=== PATIENT | female | born 1995 | race Caucasian/White ===

== ENCOUNTER 2025-03-14 19:41 | Emergency (ER) | payer OTHER, SELFPAY ==
[2025-03-14 19:51] VITALS: BP 115/56; PULSE 115; RESP 16; TEMP 36.8; O2SAT 100; BMI 22.5
--- NOTE | 2025-03-14 20:26 | ED.FEMALEGU ---
HPI - Female Genitourinary General Chief complaint: Urogenital-Female Stated complaint: UTI Time Seen by Provider: 03/14/25 23:12 Source: patient Mode of arrival: ambulatory Limitations: no limitations History of Present Illness ED Provider: Rasta RENAE HPI Narrative: The patient is a 29-year-old female presenting to the ED for evaluation of urgency, hesitancy, and dysuria. Patient reports she was treated at [facility] 3 weeks ago for UTI with cephalexin, finished the antibiotics and symptoms improved, however they returned tonight. The patient denies associated fever/chills, nausea, vomiting, chest pain, shortness of breath, vaginal discharge, irregular vaginal bleeding, or other acute somatic complaint. The patient denies any associated hematuria. Related Data Previous Rx's ?Medication ?Instructions ?Recorded phenazopyridine 100 mg tablet 100 mg PO TID 6 doses #6 tabs 03/14/25 (Pyridium) sulfamethoxazole 800 1 tab PO BID #20 tabs 03/14/25 mg-trimethoprim 160 mg tablet (Bactrim DS) Allergies Allergy/AdvReac Type Severity Reaction Status Date / Time No Known Allergies Allergy Verified 03/14/25 19:54 Review of Systems Review of Systems: Yes all other systems are reviewed and are negative PMFSH Social History Social History Advance Directives: No Advance Directives Information Provided: Yes Do you have a plan to hurt others: No Plan Physical Exam Vital Signs: Vital Signs: Last Vital Signs Temp 98 F 03/14/25 22:15 Pulse 107 H 03/14/25 22:15 Resp 16 03/14/25 22:15 BP 117/58 L 03/14/25 22:15 Pulse Ox 100 03/14/25 22:15 O2 Del Method Room Air 03/14/25 22:15 BMI result Body Mass Index 22.5 CONSTITUTIONAL: The patient appears non-toxic, well nourished and in no acute distress. Vital signs as documented. HEAD: Atraumatic, normocephalic. EYES: EOMs grossly intact, pupils equal, conjunctiva clear, no exudate. ENT: Nares patent, no discharge. Airway patent, no audible stridor, visible mucosa is pink and moist without noted lesions. NECK: trachea is midline, no obvious masses or gross abnormalities. CHEST: Symmetric movement, normal appearance. LUNGS: Non-labored work of breathing. CARDIAC: No evidence of hypoperfusion. ABDOMEN: Nondistended, soft and non-tender x4 quadrants, no obvious injury. : Deferred. EXTREMITIES: Moves all extremities spontaneously without reported pain. No obvious injury or deformity noted. NEURO: Alert and oriented x3, CN II-XII appear grossly intact. Cerebellar Functioning grossly intact. Speech clear and appropriate. SKIN: Warm, dry, color appropriate. No rashes or lesions noted. Course Course Course Narrative: Medical screening exam performed. Please refer to detailed history, exam, evaluation, and management by primary provider. Recent UTI at [facility]. Reports completing antibiotics. Symptoms returning. JS Medical Decision Making Medical Decision Making [facility] Narrative: 11:41 PM 03/14/2025 ([place] RENAE): The patient is a 29-year-old female presenting to the ED for evaluation of urgency, hesitancy, and dysuria. Patient reports she was treated at [facility] 3 weeks ago for UTI with cephalexin, finished the antibiotics and symptoms improved, however they returned tonight. The patient denies associated fever/chills, nausea, vomiting, chest pain, shortness of breath, vaginal discharge, irregular vaginal bleeding, or other acute somatic complaint. The patient denies any associated hematuria. The patient's exam is benign, no acute findings. Patient is nontoxic appearing. The patient's laboratory evaluation is markedly reassuring, no leukocytosis, significant anemia, electrolyte abnormality, or LUCAS. The patient's urinalysis shows moderate leukocyte esterase with WBCs. Given the patient's symptoms , combined with the urinalysis, patient will be treated for suspected recurrent UTI with Pyridium and Bactrim. Patient has been advised to follow up with PCP for re-evaluation. Admission/Observation Consideration of admission/observation: Escalation of care including admission/observation considered Lab Data [facility] Lab Attestation statement: I reviewed the patient's lab results. 03/14/25 20:32 03/14/25 20:32 Labs: Lab Results 03/14/25 Range/Units 20:32 WBC 6.9 (4.8-10.8) X10*3/uL RBC 4.08 L (4.20-5.50) X10*6/uL Hgb 11.6 L (12.0-16.0) g/dl Hct 33.1 L (37.0-47.0) % MCV 81.1 (80.0-98.0) fL MCH 28.4 (27.0-33.0) pg MCHC 35.0 (31.0-35.0) g/dl RDW 11.8 (11.0-16.0) % Plt Count 245 (160-400) X10*3/uL MPV 9.1 L (9.4-12.3) fL Immature Gran % (Auto) 0.1 (0.0-0.4) % Neut % (Auto) 48.9 (45-73) % Lymph % (Auto) 40.8 H (20-40) % [place] % (Auto) 9.5 (2-11) % Eos % (Auto) 0.6 (0-4) % Baso % (Auto) 0.1 (0-2) % Lymph # (Auto) 2.8 (1.2-4.9) X10*3/uL [place] # (Auto) 0.7 (0.1-1.2) X10*3/uL Eos # (Auto) 0.0 (0.0-0.4) X10*3/uL Baso # (Auto) 0.0 (0.0-0.2) X10*3/uL Abs Immat Gran (auto) 0.01 (0.00-0.03) X10*3/uL Absolute Neuts (auto) 3.4 (2.0-8.3) x10*3/uL Absolute Nucleated RBC 0.000 (0.0-0.012) X10*3/uL Nucleated RBC % (auto) 0.0 (0.0-0.2) /100WBC Sodium 139 (135-145) mmol/L Potassium 4.1 (3.3-5.1) mmol/L Chloride 103 (96-108) mmol/L Carbon Dioxide 26 (22-29) mmol/L Anion Gap 14 (12-20) BUN 10 (9-16) mg/dL Creatinine 0.47 L (0.5-1.4) mg/dL Estim Creat Clear Calc 130.8 Estimated GFR > 60 Random Glucose 98 (60-115) mg/dL Calcium 9.3 (8.4-10.2) mg/dL Total Bilirubin 1.1 H (0.0-1.0) mg/dL AST 37 H (5-31) U/L ALT 56 H (0-31) U/L Alkaline Phosphatase 92 (39-117) U/L Total Protein 6.2 L (6.5-8.0) g/dL Albumin 3.9 (3.5-5.0) g/dL Urine Color Yellow Urine Appearance Clear Urine pH 6.5 (5.0-9.0) Ur Specific [place] <= 1.005 (1.005-1.025) Urine Protein Negative (Neg-Trace) mg/dL Urine Glucose (UA) Negative (Negative) mg/dL Urine Ketones Negative (Negative) mg/dL Urine Blood Negative (Negative) Urine Nitrite Negative (Negative) Ur Leukocyte Esterase Moderate (2+) H (Negative) Urine RBC 0-2 (0-2) /HPF Urine WBC 11-20 (0-5) /HPF Ur Squamous Epith Cells 0-2 (0-2) /HPF Urine Bacteria None Seen (None Seen) Hyaline Casts 0-2 (0-2) /LPF Urine Test NEGATIVE (NEGATIVE) Prescription Management I considered prescription management with: Antibiotic Discharge Plan Discharge Clinical Impression: Urinary tract infection Qualifiers: Urinary tract infection type: acute cystitis Hematuria presence: without hematuria Qualified Code(s): N30.00 - Acute cystitis without hematuria Patient Disposition: Home, Self-Care Instructions: Urinary Tract Infection in Women (ED) Additional Instructions: Thank you for choosing [facility]'s Emergency Department for your care today. Your laboratory evaluation today thankfully shows no evidence of a systemic infection or other dangerous process requiring admission to the hospital or continued ED observation, and it is safe to discharge you home. Your urinalysis and presentation of symptoms is consistent with a urinary tract infection. Seeing as he recently completed a course of cephalexin we are going to change your antibiotic to Bactrim. Please take this as prescribed until it is finished. We are also treating you with Pyridium which should alleviate some discomfort with urination. You may also take alternating (staggered) doses of ibuprofen 600mg and Tylenol 1000mg every 4 hours as needed for any additional pain. Please stay well hydrated and get plenty of rest. Please follow up with your primary care physician for re-evaluation, additional management of your symptoms, and continued preventative care. If you do not have a primary care physician, please call the [facility] at [phone] to establish a new primary care physician. While waiting to establish your new primary care physician, you can call our Walk[facility]in [facility] at [phone] for non-emergency needs. Please return to the emergency department if you develop a severe or sudden change in your symptoms, a fever over 100.4 that does not improve with Tylenol or Ibuprofen, recurrent vomiting, or any other new or worsening symptoms or concerns. Prescriptions: New phenazopyridine [Pyridium] 100 mg tablet 100 mg PO TID Qty: 6 0RF sulfamethoxazole-trimethoprim [Bactrim DS] 800-160 mg tablet 1 tab PO BID Qty: 20 0RF Referrals: Physician,Radha J [Primary Care Provider, Medical] Clinical Impression: Urinary tract infection Print Language: [place]uran
[2025-03-14 20:39] LABS: MANUAL DIFF FLAG NO
[2025-03-14 20:40] LABS: Hematocrit 33.1 % (37.0-47.0); Hemoglobin 11.6 g/dl (12.0-16.0); Imm Gran Abs Auto 0.01 X10*3/uL (0.00-0.03); Imm Gran Pct Auto 0.1 % (0.0-0.4); Lymphocytes Absolute Auto 2.8 X10*3/uL (1.2-4.9); Mean Corpuscular HGB Conc 35.0 g/dl (31.0-35.0); Mean Corpuscular Hemoglobin 28.4 pg (27.0-33.0); Mean Corpuscular Volume 81.1 fL (80.0-98.0); NRBC Abs Auto 0.000 X10*3/uL (0.0-0.012); NRBC Pct Auto 0.0 /100WBC (0.0-0.2); Platelet Count 245 X10*3/uL (160-400); Red Blood Count 4.08 X10*6/uL (4.20-5.50); White Blood Count 6.9 X10*3/uL (4.8-10.8)
[2025-03-14 20:42] LABS: Appearance Urine Clear; Glucose Urine UA Negative (Negative); PH 6.5 (5.0-9.0); Specific Gravity - Urine <= 1.005 (1.005-1.025); UMIC TRIGGER UACC YES
[2025-03-14 20:43] LABS: UPreg QC Valid YES
[2025-03-14 20:53] LABS: Alanine Aminotransferase 56 U/L (0-31); Albumin Level 3.9 g/dL (3.5-5.0); Alkaline Phosphatase 92 U/L (39-117); Anion Gap 14 (12-20); Aspartate Amino Transferase 37 U/L (5-31); Blood Urea Nitrogen 10 mg/dL (9-16); Calcium 9.3 mg/dL (8.4-10.2); Carbon Dioxide 26 mmol/L (22-29); Chloride 103 mmol/L (96-108); Creatinine Clr Calc Pharmacy 130.8; Estimated Glomerular Filt Rate > 60; Potassium 4.1 mmol/L (3.3-5.1); Sodium 139 mmol/L (135-145); Total Protein 6.2 g/dL (6.5-8.0)
[2025-03-14 20:54] LABS: UACC Culture Trigger YES
[2025-03-14 22:15] VITALS: BP 117/58; PULSE 107; RESP 16; TEMP 36.6; O2SAT 100
[2025-03-14] MEDS: Sulfamethox/Trimeth 800/160 TABLET 1 TAB PO (23:58)
[2025-03-15 00:03] VITALS: BP 118/67; PULSE 99; RESP 16; TEMP 36.7; O2SAT 99
[2025-03-15 00:06] VITALS: BP 118/67; PULSE 99; RESP 16; TEMP 36.7; O2SAT 99
== END 2025-03-15 00:06 | disposition home or self-care (01) ==
PROVIDERS: Emergency Provider Emergency Medicine
DX: N30.00 Acute cystitis without hematuria (principal); R30.0 Dysuria; R39.15 Urgency of urination; R39.11 Hesitancy of micturition
CPT/HCPCS: 36415; 80053; 81001; 81025; 85025; 87086; 87088; 87186; 99283; 99284

== ENCOUNTER 2025-04-27 11:07 | Outpatient (AMB) | payer OTHER, SELFPAY ==
--- OUTSIDE RECORDS SUMMARY | 2020-11-08 10:05 | XMS_ITS | Encounter Summary ---
Author Organization [facility] Address [address] [place] [address] Care Team Providers Care Certified Medical Technician Name Role Phone Unavailable Primary Care Provider Unavailabl e Encounter Details Date Type Department Care Team (Late st Contact Info) Description 11/08/2020 10:05 AM EDT Hospital Encounter TH HISTORIC ENCOUNTERS EASTERN CONVERSION ONLY Nenita Franco PA [address] [place] [address] Social History Tobacco Use Types Packs/Day Years Used Date Smoking Tobacco: Never Assessed Housing Instability Answer Date Recorde d Are you worried that in the next 2 months you may not have stable housing? No 06/07/2022 Food Access & Nutrition Answer Date Rec orded Do you have access to a vari ety of food including fruits and vegetables? Yes 06/07/2022 Access to Healthcare Answer Date Record ed Within the last 3 months, ho w many times did you visit the emergency department for your medical care? 0 03/07/2021 Health Literacy Answer Date Recorded How often do you need to hav e someone help you when you read instructions, pamphlets, or other written material from your doctor or pharmacy? Never 03/07/2021 Caregiver: How often do you need to have someone help you when you read instructions, pamphlets, or other written material from your doctor or pharmacy? Not on file 03/07/2021 Financial Risk Answer Date Recorded How hard is it for you to pa y for the very basics like food, housing, medical care, and air conditioning / heating? Not very hard 06/07/2022 Transportation Answer Date Recorded Has the lack of transportati on kept you from meetings, work, or from getting things needed for daily living? No Has the lack of transportati on kept you from medical appointments or from getting medications? No 06/07/2022 Social Isolation Answer Date Recorded How often do you feel lonely or isolated from th ose around you? Never 06/07/2022 Food Risk Answer Date Recorded Within the past 12 months we worried whether our food would run out before we got money to buy more. Never true 06/07/2022 Within the past 12 months th e food we bought just didn't last and we didn't have money to get more. Never true 06/07/2022 [facility] Literacy Answer Date Re corded How often do you need to hav e someone help you when you read instructions, pamphlets, or other written material from your doctor or pharmacy? Never 06/07/2022 Caregiver: How often do you need to have someone help you when you read instructions, pamphlets, or other written material from your doctor or pharmacy? Never 06/07/2022 Comments Unknown Sex and Gender Information Value Date Recorded Sex Assigned at Not on file Legal Sex Female 8:19 PM EDT Gender Identity Not on file Sexual Orientation Not on file COVID-19 Exposure Response Date Recorded In the last 10 days, have yo u been in contact with someone who was confirmed or suspected to have Coronavirus/COVID-19? No / Unsure 11/09/2022 10:14 AM EDT documented as of this encounter Plan of Treatment Not on file documented as of this encounter Procedures Procedure Name Priority Date/Time Associated Diagnosis Comments PAP SMEAR Routine 11/08/2020 10:03 AM EDT documented in this encounter Results * Pap smear (11/08/2020 10:03 AM EDT) Clinical Information Z12.4 LMP: 10/26/20 SPECIMEN TO BE ALIQUOTED FOR GC/CHL TESTING. HISTORICAL TESTING LAB RESULTING AGENCY Cytologic Final Diagnosis Negative for intraepithelial lesion or malignancy. Yeast and pseudohyphae present consistent with Herminia species. Satisfactory for evaluation. Endocervical/trans formation zone component not seen. Specimen screened at [address] [place] [address] HISTORICAL TESTING LAB RESULTING AGENCY Signed Signed by Alina Spear ON 11/16/2020 14:34 HISTORICAL TESTING LAB RESULTING AGENCY Comment SOURCE: VAGINAL/CERVICAL HISTORICAL TESTING LAB RESULTING AGENCY 11/08/2020 10:0 3 AM EDT Nenita RENAE LAB CYTOLOGY ORDERABLES Final Result HISTORICAL TESTING LAB RESULTING AGENCY documented in this encounter Visit Diagnoses Not on filedocumented in this encounter
--- NOTE | 2025-04-27 11:10 | MHC.OFFVIS ---
Intake Visit Reasons: recurrent UTI, gross hematuria Intake Note: New Patient is present for recurrent UTI and gross Hematuria Urology Rx: pyridium PVR:108 mls Blood Thinners:none Imaging completed: none Smoker : no Chemical Laboratory Tester Required: No Accompanied by: Self / Same As Patient Allergies No Known Allergies Allergy (Verified 04/27/25 11:17) HPI Comments Details: Rupali is a pleasant female. She is seen for the following urologic conditions - complicated UTI Had 3 infections over past 2 months Last infection at [facility] Urine culture positive E coli pansensitive Does have some variability with bowel habits Discussed use of fermented foods such as yogurt and probiotics Given trimethoprim to take postcoital Six-month follow-up nurse-practitioner Review of Systems Const Denies chills and Denies fever(s) Card Reports no additional complaints and Denies syncope Resp Denies cough GI Denies abdominal pain and Denies heartburn Reports as per HPI and Denies change in libido Neuro Denies syncope Psych Denies change in libido Endo Denies change in libido Physical Exam Const General: cooperative, healthy appearing, comfortable and no acute distress Orientation/consciousness: patient oriented x3 HEENT Face and sinus: Yes normal facial exam Mouth: moist mucous membranes Neck Neck: Yes normal visual inspection, Yes full ROM and Yes trachea midline Chest Chest palpation & inspection: normal inspection of the chest Resp Effort & Inspection: normal respiratory effort, able to speak in complete sentences and no respiratory distress GI Inspection: Yes normal to inspection Back/Spine/Pelvis Cervical Spine: normal cervical lordosis Thoracic/Lumbar Spine: thoracic and lumbar spine normal to inspection Skin General skin exam: no rashes or lesions noted Neuro General: patient oriented x3, gait normal, tone normal and moves all extremities Extrem General: Yes normal to inspection and Yes capillary refill normal Assessment & Plan Assessment & Plan (1) Complicated urinary tract infection: Code(s): N39.0 - Urinary tract infection, site not specified Category: Medical Plan Six-month follow-up nurse-practitioner Medications: New trimethoprim Use post coital 1 tab 100 mg PO ONCE PRN 30 tabs 1RF post coital 30 days N39.0 - Urinary tract infection, site not specified Patient Instructions: This note is constructed using voice recognition software. While every effort has been made to ensure accuracy rent collector errors may have been included. Imaging studies, laboratory and physical exam results were discussed and reviewed in detail. No major barriers to patient understanding were identified. An opportunity to ask questions regarding the treatment plan was provided. All questions were answered. The patient expressed understanding and agreement with the above treatment plan. The patient is aware they should contact our office by phone for worsening of their current condition or the appearance of new urologic symptoms. Compliance is encouraged with any medications and followup testing that is ordered. It is a privilege to participate in the urologic care of your patient. If you have any questions or concerns regarding treatment for the above conditions, or other urologic issues, please do not hesitate to contact me. The office telephone contact is [phone]. Sincerely, Dr Cali Zapata MD, MAY[facility] - Urology Compassionate Specialist Care for the Genitourinary System Coding Level of Care Code New Pt Level 4 (93646) Diagnoses Complicated urinary tract infection N39.0
--- OUTSIDE RECORDS SUMMARY | 2025-04-27 12:35 | XMS_ITS | Clinical Summary ---
Author Organization [facility] Address [address] [place] [address] Care Team Providers Care Voice Over Announcer Name Role Phone Albino Álvarez MD Primary Care Provider Allergies Active Allergy Reactions Criticality Noted Date Comments Latex Itching,Rash 12/30/2020 Medications Lo Loestrin Fe 1 mg-10 mcg (24)/10 mcg (2) per tabletIndications:E ncounter for repeat prescription of oral contraceptives TAKE 1 TABLET BY MOUTH 1 TIME EACH DAY 84 tablet 3 3 Active Lidocaine Viscous 2 % solutionIndications :Acute pharyngitis, unspecified etiology SWISH AND SWALLOW 5 ML BY MOUTH EVERY 3 TO 4 HOURS NEEDED FOR PAIN 3 Active Active Problems Problem Noted Date Diagnosed Date Chalazion 11/08/2020 Overview (12/24/2020): bilateral Immunizations Immunization Administration Dates Next Due Influenza trivalent, 0.5mL, preservative free (Fluarix; FluLaval; Fluzone) ages 6mo and older (Afluria) 3 years and older 04/16/2017 Pfizer SARS-CoV-2 COVID-19, mRNA, LNP-S, preservative free 11/02/2020,10/12/2020 Medical History Medical History Date Comments Chalazion of left eye Family History Medical History Relation Name Comments Heart disease Father essential hypertension Mother Uterine cancer Mother's Sister Relation Name Status Comments Father Mother Mother's Sister Social History Tobacco Use Types Packs/Day Years Used Date Smoking Tobacco: Never Smokeless Tobacco: Never Tobacco Cessation:Counseling Given: No Alcohol Use Standard Drinks/Week Comments Yes 0 (1 standard drink = 0.6 oz pure alcohol) Alcohol intake: Occasional beer Housing Instability Answer Date Recorde d Are [...] money to get more. Never true 06/07/2022 [facility] Answer Date Re corded How often do you need to hav e someone help you when you read instructions, pamphlets, or other written material from your doctor or pharmacy? Never 06/07/2022 Caregiver: How often do you need to have someone help you when you read instructions, pamphlets, or other written material from your doctor or pharmacy? Never 06/07/2022 Education Answer Date Recorded What is the highest level of school you have completed or the highest degree you have received? 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 Not on file Not on file Not on file Obstetrics History Para Term AB IAB SAB Ectopic Multiple Livin g Live Births 0 0 0 0 0 0 0 0 Last Filed Vital Signs Vital Sign Reading Time Taken Comments Blood Pressure 100/60 11/09/2022 10:45 AM EDT Pulse 78 11/09/2022 10:45 AM EDT Temperature 36.5 C (97.7 F) 12/13/2021 1:06 PM EDT Respiratory Rate 22 11/09/2022 10:45 AM EDT Oxygen Saturation 98% 11/09/2022 10:45 AM EDT Inhaled Oxygen Concentration - - Weight 59.4 kg (131 lb) 11/09/2022 10:45 AM EDT Height 157.5 cm (5' 2 ) 10/23/2022 1:36 PM EDT Body Mass Index 23.96 10/23/2022 1:36 PM EDT Plan of Treatment Health Maintenance Due Date Last Done Comments DTaP,Tdap,and Td Vaccines (1 - Tdap) 2012 Hepatitis B Vaccines (1 of 3 - 19+ 3-dose series) 2012 Social Influencers of Health Screening 09/11/2019 Cervical Cancer Screening: P ap Smear 11/09/2023 11/08/2020, 11/08/2020 Depression Screening 07/29/2024 06/07/2022, 09/20/2020 COVID-19 Vaccine (4 - 2024-2 6 season) 2025 06/16/2021, 11/02/2020, 10/12/2020 Influenza Vaccine (#1) 2025 , 04/16/2017 Cholesterol Screening (Lipid Panel) 12/30/2025 12/30/2020 RSV Immunization Adult Patients (1 - 1-dose 75+ series) 2068 HIV Screening Completed 06/07/2022, 03/13/2021, 11/08/2020 Hepatitis C Screening Completed 06/07/2022 , 03/13/2021, 11/08/2020 HIB Vaccines Aged Out No longer eligi ble based on patient's age to complete this topic HPV Vaccines Aged Out No longer eligi ble based on patient's age to complete this topic Hepatitis A Vaccines Aged Out No long er eligible based on patient's age to complete this topic IPV Vaccines Aged Out No longer eligi ble based on patient's age to complete this topic MMR Vaccines Aged Out No longer eligi ble based on patient's age to complete this topic Meningococcal ACWY Vaccine Aged Out N o longer eligible based on patient's age to complete this topic Meningococcal B Vaccine Aged Out No l onger eligible based on patient's age to complete this topic Pneumococcal Vaccine: Pediatrics (0 to 5 Years) and At-Risk Patients (6 to 49 Years) Aged Out No longer eligible b ased on patient's age to complete this topic RSV Immunization Patients Under 20 months Aged Out No longer eligible b ased on patient's age to complete this topic Varicella Vaccines Aged Out No longer eligible based on patient's age to complete this topic Procedures Procedure Name Priority Date/Time Associated Diagnosis Comments HEPATITIS C ANTIBODY, SCREEN, WITH REFLEX TO PCR Routine 06/07/2022 3:49 PM EST Routine screening for STI (sexually transmitted infection) HIV 1, HIV 2 ANTIBODY SCREEN, P24 ANTIGEN WITH REFLEX TO DIFFERENTIATION Routine 06/07/2022 3:49 PM EST Routine screening for STI (sexually transmitted infection) LIPID PANEL Routine 12/30/2020 8:09 AM EDT Well adult exam PAP SMEAR Routine 11/08/2020 10:03 AM EDT HM DEPRESSION SCREENING Routine 09/20/2020 from Last 3 Months or Most Recently Relevant to Health Maintenance Results * Hepatitis C antibody screen, reflex to molecular study (06/07/2022 3:49 PM EST) Hepatitis C Antibody Negative/ Nonreacti ve Negative/ Nonreacti ve LAB CHEMISTRY METHOD 06/07/2022 10:34 PM EST [facility] Comment: 1. These results were obtained with Advia Centaur HCV assay. Results obtained from other manufacturers' methods may not be used interchangeably. June 2008. 2. POSITIVE / REACTIVE Reported to the [facility]. Quantitative HCV RNA by PCR will follow. 3. LOW POSITIVE/LOW REACTIVITY Confirmation by Quantitative HCV RNA by PCR will follow. 4. NEGATIVE / NONREACTIVE result is normal. 5. [facility] requires all positive results to include an ALT. This test will reflex. No charge. Blood Venous blood specimen / Unknown Venipuncture / Unknown 06/07/2022 3:49 PM EST 06/07/2022 3:49 PM EST Aleah Fuchs [employer] LAB BLOOD ORDERABLES Jacqueline diaz Result [facility] [address] [place] [address] * HIV 1, HIV 2 antibody screen, P24 antigen with reflex to differentiation (06/07/2022 3:49 PM EST) HIV Combo AB/AG Negative/ Nonreacti ve Negative/ Nonreacti ve LAB CHEMISTRY METHOD 06/07/2022 10:36 PM EST [facility] Blood Venous blood specimen / Unknown Venipuncture / Unknown 06/07/2022 3:49 PM EST 06/07/2022 3:49 PM EST Narrative [facility] - 06/07/2022 10:36 PM EST 1. The Advia Centaur HIV AG/AB COMBO is a 4th Generation Assay that screens for the presence of antibodies to HIV-1 (including Group O ), HIV-2 and the HIV p24 Antigen in serum using the Advia Centaur XP System. 2. The assay is intended to be used as an aid in diagnosis of HIV infection in pediatric, adult populations and women. 3. The performance of this assay has not been clinically validated in patients less than 2 years old. 4. A REACTIVE result does not distinguish between HIV-1 AB, HIV-1 Group O AB, HIV-2 AB and HIV-1 p24 AG. 5. Only REACTIVE results are reported to [facility]. 6. REACTIVE results will be sent to our Reference Laboratory for HIV-1 AB, HIV-2 AB differentiation, and HIV-1 RNA detection by Datastage Consultant-Mediated Amplification (TMA) and if positive, quantitation by Real-Time PCR. us Aleah Fuchs NP LAB BLOOD ORDERABLES Jacqueline diaz Result [facility] [address] [place], [place] [id number] * Lipid panel (12/30/2020 8:09 AM EDT) Cholesterol 154 <200 mg/dL LAB CHEMISTRY METHOD 12/31/2020 12:11 AM EDT [facility] Triglycerides 70 <150 mg/dL LAB CHEMISTRY METHOD 12/31/2020 12:11 AM EDT [facility] HDL 62 >59 mg/dL LAB CHEMISTRY METHOD 12/31/2020 12:11 AM EDT [facility] LDL Calculated 78 0 - 99 mg/dL LAB CHEMISTRY METHOD 12/31/2020 12:11 AM EDT [facility] Comment: NATIONAL CHOLESTEROL EDUCATION PROGRAM (NCEP) ADULT TREATMENT PANEL III LIPID RISK CATEGORIES REVISED NOVEMBER 2000 LDL CHOLESTEROL <100 OPTIMAL 100 - 129 NEAR OPTIMAL TO ABOVE OPTIMAL 130 - 159 BORDERLINE HIGH 160 - 189 HIGH >189 VERY HIGH TOTAL CHOLESTEROL <200 DESIRABLE 200 - 239 BORDERLINE HIGH >239 HIGH HDL CHOLESTEROL <40 LOW >59 DESIRABLE LDL TREATMENT GOALS BY CATEGORY RISK LDL GOAL WITH CHD OR CHD EQUIVALENTS <100 MULTIPLE (2+) RISK FACTORS <130 ZERO TO ONE RISK FACTOR <160 VLDL Cholesterol Mitchell 14 <=30 mg/dL LAB CHEMISTRY METHOD 12/31/2020 12:11 AM EDT [facility] Blood Topography not assigned / Unknown Venipuncture / Unknown 12/30/2020 8:09 AM EDT 12/30/2020 8:09 AM EDT Dionne Mclean MD LAB BLOOD ORDERABLES Final Res ult Performing Organization Address City/[facility]/ZIP Co de Phone Number [facility] [address] [place] [phone] * Pap smear (11/08/2020 10:03 AM EDT) [facility] [address] Clinical Information [id number] LMP: 10/26/20 SPECIMEN TO BE ALIQUOTED FOR GC/CHL TESTING. HISTORICAL TESTING LAB RESULTING AGENCY Cytologic Final Diagnosis Negative for intraepithelial lesion or malignancy. Yeast and pseudohyphae present consistent with Herminia species. Satisfactory for evaluation. Endocervical/trans formation zone component not seen. Specimen screened at [address] [place] [address] HISTORICAL TESTING LAB RESULTING AGENCY Signed Signed by Alina Spear ON 11/16/2020 14:34 HISTORICAL TESTING LAB RESULTING AGENCY Comment SOURCE: VAGINAL/CERVICAL HISTORICAL TESTING LAB RESULTING AGENCY 11/08/2020 10:0 3 AM EDT Nenita RENAE LAB CYTOLOGY ORDERABLES Final Result HISTORICAL TESTING LAB RESULTING AGENCY * Depression Screening (09/20/2020) Pathologist [facility] Depression Screening Abstracted us Historical Provider HEALTH MAINTENANCE Final Result from Last 3 Months or Most Recently Relevant to Health Maintenance Insurance [employer] Care Teams Voice Over Announcer Relationship Specialty Start Date End Date Albino Álvarez MD [address] [place] [address] PCP - General Family Medicine 04/12/21
== END 2025-04-27 11:37 | disposition home or self-care (01) ==
LOC: HO.HUSH 11:07
PROVIDERS: Visit Provider Urology
DX: N39.0 Urinary tract infection, site not specified (principal)
CPT/HCPCS: 99204

== ENCOUNTER → 2025-04-27 11:07 | Outpatient (BNVA) | payer OTHER, SELFPAY | PROVIDERS: Visit Provider Urology | DX: N39.0 Urinary tract infection, site not specified (principal) | CPT/HCPCS: 51798; 81003 ==